=== PATIENT | male | born 1950 | race Caucasian/White ===

== ENCOUNTER 2019-01-17 08:39 | Day surgery (SDC) | payer OTHER ==
[2019-01-17] MEDS ORDERED: PHENYLEPHRINE 10% OPTH 5ML OPTH ONE ×2 (09:36→09:43)
[2019-01-17] MEDS ORDERED: PHENYLEPHRINE 10% OPTH 5ML ONE (09:36)
[2019-01-17] MEDS ORDERED: CYCLOPENTOLATE 1% OPTH 2 ML OPTH ONE ×2 (09:36→09:43)
[2019-01-17] MEDS ORDERED: LIDOCAINE 2% MPF 5 ML VIAL ONE (09:36)
[2019-01-17] MEDS ORDERED: CYCLOPENTOLATE 1% OPTH 2 ML ONE (09:36)
[2019-01-17] MEDS ORDERED: BUPIVACAINE 0.25% PF 10 ML VIAL ONE (09:36)
[2019-01-17] MEDS ORDERED: NA CHLORIDE 0.9% 500 ML ONE (09:36)
[2019-01-17] MEDS ORDERED: TETRACAINE HCL 0.5% 4ML OPTH ONE (09:37)
[2019-01-17] MEDS: LIDOCAINE HCL/PF 3.5% OPTH GEL ONE ×2 (09:47→10:39)
[2019-01-17] MEDS ORDERED: EPINEPHRINE/PF 1 MG/ML AMP ONE (09:49)
[2019-01-17] MEDS ORDERED: NS 0.9% VIAL 10 ML ONE (09:49)
[2019-01-17] MEDS ORDERED: BALANCED SALT IRRIG PLAIN 500 ML BTL IRR ONE (09:49)
[2019-01-17] MEDS ORDERED: DUOVISC 1 KIT OPTH ONE (09:49)
[2019-01-17] MEDS ORDERED: LIDOCAINE 1% MPF 2 ML AMPULE ONE (09:50)
[2019-01-17] MEDS ORDERED: MOXIFLOXACIN HCL 10 DROPS/ML **OR USE OPTH ONE (09:50)
[2019-01-17] MEDS ORDERED: FENTANYL CITR 100 MCG/2 ML ONE (10:30)
[2019-01-17] MEDS ORDERED: MIDAZOLAM HCL 2 MG/2 ML INJ ONE (10:31)
--- NOTE | 2019-01-17 11:22 | P.BOP ---
Preoperative diagnosis: Nuclear sclerotic and posterior subcapsular cataract OS Postoperative diagnosis: Same Primary procedure: Phacoemulsification with IOL OS Estimated blood loss: None Anesthesia: Local (Topical with anesthesia for cataract surgery) Complications: None Implants: ZCB00 +16.5 Transferred to: Other (Day surgery) Condition: Good
--- NOTE | 2019-01-17 22:04 | OP ---
Date of Procedure: 01/17/2019 Surgeon: Kimberli Osorio MD Anesthesiologist: Maeve Burns CRNA and Sheng Hernandez MD. Preoperative Diagnoses: Nuclear sclerotic and posterior subcapsular cataract, left eye. Operation Performed: Phacoemulsification with intraocular lens implant, left eye. Anesthesia: Per cataract surgery. Complications: None. Description Of Procedure: In the operating room the patient was prepped and draped in the usual ster ile fashion for ophthalmic surgery. A lid speculum was placed in the left eye. Two paracentesis sit es were made superiorly and inferiorly in the limbal cornea. Viscoat was placed in the anterior alo marco antonio and a crescent blade was used to make a corneal groove and tunnel, and a keratome was used to ent er the anterior chamber. Provisc was placed in the anterior chamber and a 360 degree capsulotomy was performed with a cystitome. The lens was hydrodissected with BSS and rotated freely. The lens was removed with a stop and chop technique. 6.98 phaco CDE was used to remove the lens. Residual cortex was removed with the irrigation and aspiration. Provisc was placed in the capsular bag. A ZCB00 +1 6.5 lens was placed in the capsular bag without complications. Irrigation and aspiration were used t o remove residual viscoelastic. The paracentesis sites were hydrated with BSS. The wound and parace ntesis sites were inspected and found to be watertight. Vigamox 0.07 cc was placed intracamerally at the end of the procedure. The eye was irrigated with balanced salt solution. The eye was patched w ith a soft cotton patch and Faye metal shield. The patient was returned to day surgery in good condition. Comments: Akten was placed in the eye in Day Surgery and irrigated out of the eye with BSS in the OR . 1% preservative-free lidocaine was placed in the anterior chamber prior to Viscoat. Discharge Instructions: Mr. Conner is discharged to home in good condition and is to follow up with Jaylin Osorio in the morning. COLE/NADIA Voice ID: [id number] Report ID: [id number]
== END 2019-01-17 12:00 | disposition home or self-care (01) ==
LOC: OR 08:39
PROVIDERS: ATTEND Ophthalmology Retina Specialist
PROC: 08RK3JZ Replacement of Left Lens with Synthetic Substitute, Percutaneous Approach (ICD-10-PCS; principal; 2019-01-17 10:00)
DX: H25.042 Posterior subcapsular polar age-related cataract, left eye (principal); E78.00 Pure hypercholesterolemia, unspecified; F17.290 Nicotine dependence, other tobacco product, uncomplicated; Z79.899 Other long term (current) drug therapy
CPT/HCPCS: 66984; J0171; J2250; J2001; J3010

== ENCOUNTER 2019-02-14 09:42 | Day surgery (SDC) | payer OTHER ==
[2019-02-14] MEDS ORDERED: DUOVISC 1 KIT OPTH ONE (09:49)
[2019-02-14] MEDS ORDERED: BALANCED SALT IRRIG PLAIN 500 ML BTL IRR ONE (09:49)
[2019-02-14] MEDS ORDERED: EPINEPHRINE/PF 1 MG/ML AMP ONE (09:49)
[2019-02-14] MEDS ORDERED: NS 0.9% VIAL 10 ML ONE (09:49)
[2019-02-14] MEDS ORDERED: LIDOCAINE 1% MPF 2 ML AMPULE ONE (09:49)
[2019-02-14] MEDS ORDERED: MOXIFLOXACIN HCL 10 DROPS/ML **OR USE OPTH ONE (09:49)
[2019-02-14] MEDS ORDERED: TETRACAINE HCL 0.5% 4ML OPTH ONE (10:05)
[2019-02-14] MEDS ORDERED: LIDOCAINE 2% MPF 5 ML VIAL ONE (10:05)
[2019-02-14] MEDS ORDERED: PHENYLEPHRINE 10% OPTH 5ML ONE (10:05)
[2019-02-14] MEDS ORDERED: NA CHLORIDE 0.9% 500 ML ONE (10:05)
[2019-02-14] MEDS ORDERED: BUPIVACAINE 0.25% PF 10 ML VIAL ONE (10:05)
[2019-02-14] MEDS ORDERED: CYCLOPENTOLATE 1% OPTH 2 ML ONE (10:05)
[2019-02-14] MEDS ORDERED: CYCLOPENTOLATE 1% OPTH 2 ML OPTH ONE ×2 (10:10→10:15)
[2019-02-14] MEDS ORDERED: PHENYLEPHRINE 10% OPTH 5ML OPTH ONE ×2 (10:10→10:15)
[2019-02-14] MEDS: LIDOCAINE HCL/PF 3.5% OPTH GEL ONE ×2 (10:29→11:20)
[2019-02-14] MEDS ORDERED: FENTANYL CITR 100 MCG/2 ML ONE (10:56)
[2019-02-14] MEDS ORDERED: MIDAZOLAM HCL 2 MG/2 ML INJ ONE (10:56)
[2019-02-14] MEDS ORDERED: BSS OPTHALMIC SOL 15 ML BOT OPTH ONE (11:26)
--- NOTE | 2019-02-14 12:04 | P.BOP ---
Preoperative diagnosis: Nuclear sclerotic and posterior subcapsular cataract OD Postoperative diagnosis: Same Primary procedure: Phacoemulsification with IOL OD Estimated blood loss: None Anesthesia: Local (Topical with anesthesia for cataract surgery) Complications: None Implants: ZCB00 +16.5 Transferred to: Other (Day surgery) Condition: Good
--- NOTE | 2019-02-14 23:43 | OP ---
Date of Procedure: 02/14/2019 Surgeon: Kimberli Osorio MD Anesthesiologist: Kelsey Melendez CRNA; Jayesh Willis CRNA; and Sheng Hernandez MD. Preoperative Diagnosis: Nuclear sclerotic and posterior subcapsular cataract, right eye. Operation Performed: Phacoemulsification with intraocular lens, right eye. Anesthesia: Per cataract surgery. Complications: None. Description Of Procedure: In the operating room the patient was prepped and draped in the usual sterile fashion for ophthalmic surgery. A lid speculum was placed in the right eye. Two paracentesis sites were made superiorly and inferiorly in the limbal cornea. Viscoat was placed in the anterior chamber and a crescent blade was used to make a corneal groove and tunnel, and a keratome was used to enter the anterior chamber. Provisc was placed in the anterior chamber and a 360 degree capsulotomy was performed with a cystitome. The lens was hydrodissected with BSS and rotated freely. The lens was removed with a stop and chop technique. A 7.64 phaco CDE was used to remove the lens. Residual cortex was removed with the irrigation and aspiration. Provisc was placed in the capsular bag. A ZCB00 +16.5 lens was placed in the capsular bag without complications. Irrigation and aspiration were used to remove residual viscoelastic. The paracentesis sites were hydrated with BSS. The wound and paracentesis sites were inspected and found to be watertight. Vigamox 0.07 cc was placed intracamerally at the end of the procedure. The eye was irrigated with balanced salt solution. The eye was patched with a soft cotton patch and Faye metal shield. The patient was returned to day surgery in good condition. Comments: Akten was placed in the eye in Day Surgery and irrigated out of the eye with BSS in the OR. Preservative-free 1% lidocaine was placed in the anterior chamber prior to Viscoat. Discharge Instructions: Mr. Conner was discharged to home in good condition. COLE/NADIA Voice ID: [id number] Report ID: [id number]
== END 2019-02-14 12:45 | disposition home or self-care (01) ==
LOC: OR 09:42
PROVIDERS: ATTEND Ophthalmology Retina Specialist
PROC: 08RJ3JZ Replacement of Right Lens with Synthetic Substitute, Percutaneous Approach (ICD-10-PCS; principal; 2019-02-14 10:30)
DX: H25.11 Age-related nuclear cataract, right eye (principal); H25.041 Posterior subcapsular polar age-related cataract, right eye; I10 Essential (primary) hypertension; E78.00 Pure hypercholesterolemia, unspecified; F17.200 Nicotine dependence, unspecified, uncomplicated; Z83.3 Family history of diabetes mellitus; Z83.518 Family history of other specified eye disorder
CPT/HCPCS: 66984; J0171; J2250; J3010; J2001